=== PATIENT | female | born 2000 ===

== ENCOUNTER 2023-05-14 02:26 | Emergency (ER) | payer OTHER ==
[2023-05-14 02:42] VITALS: BP 103/67; PULSE 88; RESP 18; TEMP 98; BMI 29.7
[2023-05-14] MEDS ORDERED: METOCLOPRAMIDE HCL INJECTION 10 MG/2 ML VIAL IVPUSH ONE (03:41)
[2023-05-14] MEDS ORDERED: SODIUM CHLORIDE 0.9% 500 ML INFUS.BAG IV ONE (03:41)
[2023-05-14] MEDS ORDERED: METOCLOPRAMIDE HCL INJECTION 10 MG/2 ML VIAL ONE (03:48)
== END 2023-05-14 05:05 | disposition home or self-care (01) ==
LOC: JER 02:26
PROC: 3E033GC Introduction of Other Therapeutic Substance into Peripheral Vein, Percutaneous Approach (ICD-10-PCS; principal; 2023-05-14)
DX: R51.9 Headache, unspecified (principal); R42 Dizziness and giddiness; R11.2 Nausea with vomiting, unspecified; Z20.822 Contact with and (suspected) exposure to COVID-19
CPT/HCPCS: 0241U-QW; 99284-25